=== PATIENT | male | born 1985 | race Asian ===

== ENCOUNTER → 2020-07-02 15:00 | Outpatient (CLI) | payer OTHER, SELFPAY ==
[2020-07-02] MEDS: COVID-19 VACC #1, MRNA(MOD) 100 MCG/0.5 ML VIAL IM (15:08)
== END ==
PROVIDERS: Visit Provider Internal Medicine
DX: Z23 Encounter for immunization (principal)
CPT/HCPCS: 0011A; 91301

== ENCOUNTER → 2020-07-31 15:02 | Outpatient (CLI) | payer OTHER, SELFPAY ==
[2020-07-31] MEDS: COVID-19 VACC #2, MRNA(MOD) 100 MCG/0.5 ML VIAL IM (15:10)
== END ==
PROVIDERS: Visit Provider Internal Medicine
DX: Z23 Encounter for immunization (principal)
CPT/HCPCS: 0012A; 91301

== ENCOUNTER → 2023-07-21 08:28 | Outpatient (CLI) | payer OTHER, SELFPAY ==
[2023-07-21 09:53] LABS: Add Manual Diff / Slide Review NO; Basophils Absolute Auto 100 /uL (0-100); Basophils Percent Auto 0.8 % (0-2); Eosinophils Absolute Auto 100 /uL (0-450); Eosinophils Percent Auto 0.9 % (2-4); Hematocrit 48.6 % (41-53); Hemoglobin 16.5 g/dL (13.5-17.5); Lymphocytes Absolute Auto 1200 /uL (1100-4500); Lymphocytes Percent Auto 16.8 % (25-40); Mean Corpuscular HGB Conc 33.9 % (30-36); Mean Corpuscular Hemoglobin 30.5 PG (26-34); Mean Corpuscular Volume 90.2 fL (80-100); Monocytes Absolute Auto 500 /uL (0-900); Monocytes Percent Auto 7.3 % (3-14); Neutrophils Absolute Auto 5400 /uL (1500-7000); Neutrophils Percent Auto 74.2 % (50-75); Platelet Count 211 X10^3/uL (150-400); Red Blood Cell Count 5.39 X10^6/uL (4.5-5.9); Red Cell Distribution Width 13.1 % (11.6-14.8); White Blood Cell Count 7.3 X10^3/uL (4.5-11.0)
[2023-07-21 10:11] LABS: D Dimer 1156 ng/ml (<500)
[2023-07-21 10:13] LABS: Alanine Aminotransferase 44 IU/L (<50); Albumin 4.4 g/dL (3.5-5.0); Albumin Globulin Ratio 1.3 (1.0-2.8); Alkaline Phosphatase 75 U/L (38-126); Aspartate Aminotransferase 38 IU/L (17-59); BUN Creatinine Ratio 20.8 (6-22); Blood Urea Nitrogen 15 mg/dL (9-20); Calcium 9.1 mg/dL (8.4-10.2); Carbon Dioxide 28 mmol/L (22-32); Chloride 101 mmol/L (98-107); Cholesterol 206 mg/dL (140-199); Estimated Glomerular Filt Rate > 60 mL/min (>60); Globulin 3.5 g/dL (1.7-4.1); Glucose 92 mg/dL (70-100); HDL Cholesterol 58 mg/dL (40-60); HEMOLYSIS < 15 (0-50); LDL Cholesterol Calculated 120 mg/dL (<100); Sodium 136 mmol/L (137-145); Total Protein 7.9 g/dL (6.3-8.2); Triglycerides 139 mg/dL (35-150)
[2023-07-21 18:11] LABS: HIV 1 & 2 Ab/Ag 4th Gen Combo NEGATIVE (NEGATIVE); Hep C Virus Ab w/Reflex Quant NEGATIVE s/c (NEGATIVE)
[2023-07-22 20:49] LABS: Hemoglobin A1C% w Est Avg Glu 5.2 % (4.0-6.0)
== END ==
PROVIDERS: PCP Family Medicine; Referring Provider Family Medicine; Visit Provider Family Medicine
DX: Z00.00 Encounter for general adult medical examination without abnormal findings (principal); M79.89 Other specified soft tissue disorders; I87.2 Venous insufficiency (chronic) (peripheral); R03.0 Elevated blood-pressure reading, without diagnosis of hypertension; Z11.59 Encounter for screening for other viral diseases; Z11.4 Encounter for screening for human immunodeficiency virus [HIV]
CPT/HCPCS: 36415; 80053; 80061; 83036; 85025; 85379; 86803; 87389

== ENCOUNTER → 2023-07-27 06:38 | Outpatient (CLI) | payer OTHER, SELFPAY ==
--- NOTE | 2023-07-27 06:38 | DI.US.S_ITS ---
PROCEDURE: US PERIPH VENOUS LOW EXTREM LT INDICATIONS: unilat swelling, r/o DVT, + ddimer TECHNIQUE: Real-time imaging, as well as color and pulse Doppler interrogation, were performed of the lower extremity deep veins from the inguinal ligament to the popliteal fossa, with documentation of the visualized calf veins. COMPARISON: [facility], CT, CT ANGIO CHEST PE PROTOCOL, 07/27/2023, 8:01. FINDINGS: There is acute, noncompressible deep venous thrombosis in the mid to distal superficial femoral vein, popliteal vein and posterior tibial vein. The peroneal vein is not well seen. The common femoral and proximal superficial femoral vein normally compressible, and free of intraluminal thrombus. Color and pulse Doppler demonstrate normal phasic intraluminal flow. There is normal augmentation response to distal compression maneuver. IMPRESSION: Acute deep venous thrombosis in the mid to distal superficial femoral vein, popliteal vein and posterior tibial vein. The ordering provider was unable to be reached; therefore, the patient was sent to the emergency department from [place]. I spoke to Dr. Muir in the ED who states that he has started the patient on a blood thinner. Dictated by: Rhea Ivey M.D. on 07/27/2023 at 10:52 Approved by: Rhea Ivey M.D. on 07/27/2023 at 11:00
== END ==
LOC: US 06:38
PROVIDERS: PCP Family Medicine; Referring Provider Family Medicine; Visit Provider Family Medicine
DX: I82.432 Acute embolism and thrombosis of left popliteal vein (principal); I82.442 Acute embolism and thrombosis of left tibial vein; I82.812 Embolism and thrombosis of superficial veins of left lower extremity; M79.89 Other specified soft tissue disorders
CPT/HCPCS: 93971

== ENCOUNTER 2023-07-27 07:35 | Emergency (ER) | payer OTHER, SELFPAY ==
[2023-07-27] VITALS (11 sets, daily range): BP systolic 132–150; BP diastolic 87–103; PULSE 71–96; RESP 16; TEMP 36.7; O2SAT 98–100
--- NOTE | 2023-07-27 07:48 | ED_ITS ---
HPI - Extremity Problem General Chief complaint: Extremity Problem,Nontraumatic Stated complaint: + DVT Time Seen by Provider: 07/27/23 07:41 History of Present Illness HPI Narrative: Patient is sent here from ultrasound department for positive DVT in the left leg. This was outpatient ultrasound ordered by primary care, patient seen in the office 6 days ago for wellness visit to establish primary care. Patient denies any chest pain or shortness of breath. Denies any heart attack strokes diabetes. No personal or family history of blood clots in legs or lungs. No recent long travel or immobilization or surgery. Patient states left leg swelling started back in February. Recently has had some redness to the leg. He noticed that it did start getting bigger than the right calf. Labs were done 6 days ago as well. No medications were started. Related Data Previous Rx's Medication Instructions Recorded apixaban 5 mg tablet (Eliquis) 5 mg PO BID #60 tabs 07/27/23 Allergies Allergy/AdvReac Type Severity Reaction Status Date / Time No Known Drug Allergies Allergy Unverified 07/21/23 07:57 Review of Systems Review of Systems Narrative: GENERAL: negative chills, fatigue, malaise, fever, sweats. HEENT: negative sinus pain, ear pain, sore throat RESPIRATORY: negative dyspnea, cough CARDIOVASCULAR: negative chest pain, palpitations GASTROINTESTINAL: negative nausea, vomiting, abdominal pain : negative dysuria, frequency, hematuria MUSCULOSKELETAL: Positive muscle or bony pain SKIN: negative rash, skin lesions NEUROLOGIC: negative weakness, numbness ROS Unobtainable: All systems reviewed & are unremarkable except as noted in HPI and below Patient History Medical History Venous insufficiency Social History Smoking Status: Former smoker Smoking Status: Former smoker Exam Narrative Exam Narrative: GENERAL: in no distress, not toxic not dyspneic HEAD: Normocephalic. EYES: Pupils equal round ENT: Mucous membranes moist. NECK: Trachea midline. CARDIOVASCULAR: Regular rate and rhythm RESPIRATORY: Clear to auscultation. Breath sounds equal bilaterally. No wheezes, rales, or rhonchi. GASTROINTESTINAL: Abdomen soft, non-tender EXTREMITIES: No gross deformities. Examination of left lower extremity. Foot is warm soft and pink with strong pedal pulse with brisk cap refills. Left calf is more edematous. Compared to the right. No palpable cords. No erythema. Negative Homans and Urbano test NEURO: AOx4. SKIN: Warm and dry PSYCH: Not anxious, is cooperative Initial Vital Signs Initial Vital Signs: Vital Signs Pulse Oximetry 98 07/27/23 07:39 Course Orders Ordered: Discontinued Medications Apixaban (Apixaban 5 Mg Tablet) 10 mg PO NOW ONE Stop: 07/27/23 09:09 Last Admin: 07/27/23 09:20 Dose: 10 mg Documented By: DEONNA Sodium Chloride (Normal Saline 0.9%) 500 mls @ 1,000 mls/hr IV BOLUS ONE Stop: 07/27/23 08:15 Last Infusion: 07/27/23 09:04 Dose: Infused Documented By: Admin: 07/27/23 08:14 Dose: 1,000 mls/hr Documented By: DEONNA Vital Signs Vital signs: Vital Signs - 8 hr 07/27/23 07:39 07/27/23 07:40 07/27/23 07:40 Temperature Pulse Rate 71 Pulse Rate [Left Dorsalis Pedis] Respiratory Rate Blood Pressure 143/95 H Pulse Oximetry 98 99 Oxygen Delivery Method 07/27/23 07:43 07/27/23 07:43 07/27/23 07:55 Temperature 98.1 F Pulse Rate 81 96 H Pulse Rate [Left Dorsalis Pedis] Respiratory Rate 16 Blood Pressure 139/103 H 139/103 H Pulse Oximetry 99 98 Oxygen Delivery Method Room Air 07/27/23 08:02 07/27/23 08:07 07/27/23 08:07 Temperature Pulse Rate 76 Pulse Rate [Left Dorsalis Pedis] 96 H Respiratory Rate Blood Pressure 142/101 H Pulse Oximetry 100 Oxygen Delivery Method 07/27/23 08:30 07/27/23 08:30 07/27/23 08:56 Temperature Pulse Rate 81 71 Pulse Rate [Left Dorsalis Pedis] Respiratory Rate Blood Pressure 139/102 H Pulse Oximetry 99 99 Oxygen Delivery Method 07/27/23 08:56 07/27/23 09:00 07/27/23 09:00 Temperature Pulse Rate 77 Pulse Rate [Left Dorsalis Pedis] Respiratory Rate Blood Pressure 150/92 H 141/91 H Pulse Oximetry 100 Oxygen Delivery Method MDM - Extremity (Nontraumatic) Lab Data 07/27/23 07:52 07/27/23 07:52 Labs: Lab Results 07/27/23 Range/Units 07:52 WBC 7.3 (4.5-11.0) X10^3/uL RBC 5.42 (4.5-5.9) X10^6/uL Hgb 16.4 (13.5-17.5) g/dL Hct 48.8 (41-53) % MCV 89.9 (80-100) fL MCH 30.2 (26-34) PG MCHC 33.6 (30-36) % RDW 13.1 (11.6-14.8) % Plt Count 231 (150-400) X10^3/uL Neut % (Auto) 66.0 (50-75) % Lymph % (Auto) 22.1 L (25-40) % [place] % (Auto) 9.7 (3-14) % Eos % (Auto) 1.6 L (2-4) % Baso % (Auto) 0.6 (0-2) % Neut # (Auto) 4800 (6431-1435) /uL Lymph # (Auto) 1600 (2081-9985) /uL [place] # (Auto) 700 (0-900) /uL Eos # (Auto) 100 (0-450) /uL Baso # (Auto) 0 (0-100) /uL PT 11.2 (9.4-12.5) SECONDS INR 1.0 (0.9-1.3) APTT 36 (25.1-36.5) SECONDS Sodium 138 (137-145) mmol/L Potassium 3.9 (3.4-5.1) mmol/L Chloride 104 (98-107) mmol/L Carbon Dioxide 28 (22-32) mmol/L BUN 17 (9-20) mg/dL Creatinine 0.67 (0.66-1.25) mg/dL Estimated GFR > 60 (>60) mL/min BUN/Creatinine Ratio 25.4 H (6-22) Glucose 88 (70-100) mg/dL Calcium 9.2 (8.4-10.2) mg/dL Total Bilirubin 0.7 (0.2-1.3) mg/dL AST 32 (17-59) IU/L ALT 39 (<50) IU/L Alkaline Phosphatase 67 (38-126) U/L Total Protein 7.8 (6.3-8.2) g/dL Albumin 4.5 (3.5-5.0) g/dL Globulin 3.3 (1.7-4.1) g/dL Albumin/Globulin Ratio 1.4 (1.0-2.8) Urine Dip Bedside Urine Glucose Negative Bedside Urine Bilirubin - Negative Bedside Urine Ketone - Negative Urine Specific [place] 1.015 Bedside Urine Occult Blood - Negative Bedside Urine pH 6.0 Bedside Urine Protein - Negative Bedside Urine Urobilinogen - Negative Bedside Urine Nitrite - Negative Bedside Urine Leukocytes - Negative Esterase Imaging Data CT scan - chest: Radiologist's Impression: [address] [address] [address] Scan Report Signed Patient: Jose Lugo MR#: [id number] : 1985 Acct:[id number] Age/Sex: 38 / M Date of Service: 07/27/23 Loc: ED Accession Number: [id number] Procedure: CT angio chest PE protocol Ordering Provider: He Muir MD PROCEDURE: CT ANGIO CHEST PE PROTOCOL INDICATIONS: Chest pain TECHNIQUE: After the administration of intravenous contrast, 2 mm thick sections acquired from the pulmonary apices to the posterior costophrenic angles. 3-dimensional maximum intensity projection (MIP) coronal and sagittal reformats were then acquired through the thorax. For radiation dose reduction, the following was used: automated exposure control, adjustment of mA and/or kV according to patient size. COMPARISON: None. FINDINGS: Image quality: Diagnostic. Pulmonary arteries: Pulmonary arteries are normal in size, and demonstrate no intraluminal filling defects to suggest central pulmonary embolism. Lower Neck: No enlarged lymph nodes. Thyroid: No thyroid nodules which require sonographic follow up, per consensus guidelines. Axillae: No enlarged lymph nodes. Chest Wall: Unremarkable. Bones: Unremarkable. Lungs and Pleura: No pneumothorax or pleural effusions. No consolidation or suspicious nodules. Heart: Heart size is normal. No pericardial effusion. Thoracic Vessels: No aortic aneurysm. Mediastinum and Anna: No enlarged lymph nodes. Esophagus: No wall thickening. No hiatal hernia. Upper Abdomen: Visualized upper abdomen solid organs and bowel loops appear normal. IMPRESSION: No pulmonary embolus. No acute cardiopulmonary process. Dictated by: Myla Gordon M.D. on 07/27/2023 at 8:24 Approved by: Myla Gordon M.D. on 07/27/2023 at 8:28 [place] - DVT: Radiologist's Impression: Positive DVT sfv/pop/post tib MDM Narrative Medical decision making narrative: Patient is sent here from ultrasound department for positive DVT in the left leg. This was outpatient ultrasound ordered by primary care, patient seen in the office 6 days ago for wellness visit to establish primary care. Patient denies any chest pain or shortness of breath. Denies any heart attack strokes diabetes. No personal or family history of blood clots in legs or lungs. No recent long travel or immobilization or surgery. Patient states left leg swelling started back in February. Recently has had some redness to the leg. He noticed that it did start getting bigger than the right calf. Labs were done 6 days ago as well. No medications were started. After history and exam CBC CMP PT INR CT chest normal saline [facility] Medical records reviewed: Ultrasound results from today office visit notes from 6 days ago Differential considered: Includes but not limited to DVT PE Lab Test results independently reviewed as above. Pertinent findings: WBC 7.3 hemoglobin 16.4 platelets 231 INR 1.0 Imaging studies independently reviewed: CT chest no acute finding Ultrasound left leg positive DVT SFV/popliteal/posterior tibial Consultations: 9:00 a.m.. Spoke with primary care provider, Dr. Giron, he will call in prescription for Eliquis for patient. He will see patient for re- evaluation within a week. His office will call patient. Blood pressure to be rechecked when they office. Patient has history of anxiety. He does not want to starting blood pressure medication. Currently blood pressure has improved 141/91 Treatments: Normal saline Eliquis Re-evaluations: 9:10 a.m.. Spoke with patient results. He is much more relaxed. Blood pressure has improved. Again, no chest pain or shortness of breath. CT imaging is reassuring. Return precautions reviewed. He desires discharge home Discussion: Appropriate for discharge home. No chest or pulmonary cardiac complaints. Patient was anxious when he came in here he states. Blood pressure has improved that he is more relaxed now. Primary Care was contacted. Eliquis will be continued by primary care. Return precautions reviewed. He desires discharge home. DVTs are noted. Likely acute on chronic. Symptoms ongoing since February last year. No chest complaints. No shortness of breath. Vital signs otherwise reassuring. Diagnosis: Acute DVT Discharge Plan Departure Patient Disposition: Home Clinical Impression: Deep vein thrombosis of lower extremity Qualifiers: Affected thrombotic vein of extremity: unspecified vein of extremity C hronicity: acute Laterality: left Qualified Code(s): I82.402 - Acute embolism and thrombosis of unspecified deep veins of left lower extremity Instructions: DI for Deep Vein Thrombosis Activity Restrictions/Additional Instructions: Please see your family doctor within a week for re-evaluation and have your blood pressure rechecked. Eliquis, a blood thinner, has been started today. And your family doctor will continue the prescription. Today CT scan results does not show a blood clot in the lungs. This is reassuring. However, return if worse if any questions or concerns of any chest pain or shortness of breath. Prescriptions: No Action Eliquis 5 mg tablet 5 mg PO BID Qty: 60 3RF Rx Instructions: 10 po bid x 7 days, then 5 mg bid po daily. Referrals: Yohannes Giron DO [Primary Care Provider] - Stand Alone Forms: Patient Portal/API
[2023-07-27 08:03] LABS: Add Manual Diff / Slide Review NO; Basophils Absolute Auto 0 /uL (0-100); Basophils Percent Auto 0.6 % (0-2); Eosinophils Absolute Auto 100 /uL (0-450); Eosinophils Percent Auto 1.6 % (2-4); Hematocrit 48.8 % (41-53); Hemoglobin 16.4 g/dL (13.5-17.5); Lymphocytes Absolute Auto 1600 /uL (1100-4500); Lymphocytes Percent Auto 22.1 % (25-40); Mean Corpuscular HGB Conc 33.6 % (30-36); Mean Corpuscular Hemoglobin 30.2 PG (26-34); Mean Corpuscular Volume 89.9 fL (80-100); Monocytes Absolute Auto 700 /uL (0-900); Monocytes Percent Auto 9.7 % (3-14); Neutrophils Absolute Auto 4800 /uL (1500-7000); Platelet Count 231 X10^3/uL (150-400); Red Blood Cell Count 5.42 X10^6/uL (4.5-5.9); Red Cell Distribution Width 13.1 % (11.6-14.8); White Blood Cell Count 7.3 X10^3/uL (4.5-11.0)
--- NOTE | 2023-07-27 08:05 | DI.CT.S_ITS ---
PROCEDURE: CT ANGIO CHEST PE PROTOCOL INDICATIONS: Chest pain TECHNIQUE: After the administration of intravenous contrast, 2 mm thick sections acquired from the pulmonary apices to the posterior costophrenic angles. 3-dimensional maximum intensity projection (MIP) coronal and sagittal reformats were then acquired through the thorax. For radiation dose reduction, the following was used: automated exposure control, adjustment of mA and/or kV according to patient size. COMPARISON: None. FINDINGS: Image quality: Diagnostic. Pulmonary arteries: Pulmonary arteries are normal in size, and demonstrate no intraluminal filling defects to suggest central pulmonary embolism. Lower Neck: No enlarged lymph nodes. Thyroid: No thyroid nodules which require sonographic follow up, per consensus guidelines. Axillae: No enlarged lymph nodes. Chest Wall: Unremarkable. Bones: Unremarkable. Lungs and Pleura: No pneumothorax or pleural effusions. No consolidation or suspicious nodules. Heart: Heart size is normal. No pericardial effusion. Thoracic Vessels: No aortic aneurysm. Mediastinum and Anna: No enlarged lymph nodes. Esophagus: No wall thickening. No hiatal hernia. Upper Abdomen: Visualized upper abdomen solid organs and bowel loops appear normal. IMPRESSION: No pulmonary embolus. No acute cardiopulmonary process. Dictated by: Myla Gordon M.D. on 07/27/2023 at 8:24 Approved by: Myla Gordon M.D. on 07/27/2023 at 8:28
[2023-07-27 08:14] LABS: Prothrombin Time 11.2 SECONDS (9.4-12.5)
[2023-07-27] MEDS: SODIUM CHLORIDE 0.9% 500 ML 1000 ML IV (08:14)
[2023-07-27 08:16] LABS: PTT Partial Thromboplastin Tim 36 SECONDS (25.1-36.5)
[2023-07-27 08:19] LABS: Alanine Aminotransferase 39 IU/L (<50); Albumin 4.5 g/dL (3.5-5.0); Albumin Globulin Ratio 1.4 (1.0-2.8); Alkaline Phosphatase 67 U/L (38-126); Aspartate Aminotransferase 32 IU/L (17-59); BUN Creatinine Ratio 25.4 (6-22); Bilirubin Total 0.7 mg/dL (0.2-1.3); Blood Urea Nitrogen 17 mg/dL (9-20); Calcium 9.2 mg/dL (8.4-10.2); Carbon Dioxide 28 mmol/L (22-32); Chloride 104 mmol/L (98-107); Estimated Glomerular Filt Rate > 60 mL/min (>60); Globulin 3.3 g/dL (1.7-4.1); Glucose 88 mg/dL (70-100); HEMOLYSIS < 15 (0-50); Potassium 3.9 mmol/L (3.4-5.1); Sodium 138 mmol/L (137-145); Total Protein 7.8 g/dL (6.3-8.2)
[2023-07-27] MEDS: APIXABAN 5 MG TABLET 10 MG PO (09:20)
== END 2023-07-27 10:25 | disposition home or self-care (01) ==
PROVIDERS: Emergency Provider Emergency Medicine; PCP Family Medicine
DX: I82.402 Acute embolism and thrombosis of unspecified deep veins of left lower extremity (principal); I82.432 Acute embolism and thrombosis of left popliteal vein; I82.442 Acute embolism and thrombosis of left tibial vein; I82.812 Embolism and thrombosis of superficial veins of left lower extremity; M79.89 Other specified soft tissue disorders; R07.9 Chest pain, unspecified
CPT/HCPCS: 36415; 71275; 80053; 81003; 85025; 85610; 85730; 93971; 96360; 99284; Q9967

== ENCOUNTER → 2023-07-30 15:10 | Outpatient (CLI) | payer OTHER, SELFPAY ==
[2023-08-03 14:34] LABS: Dilute Russell Viper Venom 39.5 sec (0.0-47.0); Lupus Reflex Interpretation Comment: (.); PTT-LA 36.9 sec (0.0-43.5); Protein C-Functional 98 % (73-180); Protein S-Functional 23 % (63-140)
[2023-08-03 15:44] LABS: Cardiolipin Ab IgA <9 APL U/mL (0-11); Cardiolipin Ab IgG <9 GPL U/mL (0-14); Cardiolipin Ab IgM <9 MPL U/mL (0-12)
== END ==
PROVIDERS: PCP Family Medicine; Referring Provider Family Medicine; Visit Provider Family Medicine
DX: I82.409 Acute embolism and thrombosis of unspecified deep veins of unspecified lower extremity (principal)
CPT/HCPCS: 36415; 81241; 85300; 85303; 85306; 85598; 85613; 86147